=== PATIENT | male | born 1970 | race Caucasian/White ===

== ENCOUNTER 2020-10-03 19:35 | Emergency (ER) | payer OTHER, SELFPAY ==
[2020-10-03] MEDS ORDERED: VANCOMYCIN 1 GM/VIAL ONE (21:33)
[2020-10-03] MEDS ORDERED: NA CHLORIDE 0.9% 500 ML ONE (21:33)
[2020-10-03 21:43] LABS: Absolute Lymphocytes (CBC) 1.3 K/uL (0.7-4.9); Basophils % 0.9 % (0-1.3); Hematocrit 39.8 % (39.6-49.0); Lymphocytes % 17.9 % (15.3-44.8); MPV 8.4 fL (7.6-11.3); RBC Red Blood Cell Count 4.73 M/uL (4.33-5.43)
[2020-10-03 21:59] LABS: C-Reactive Protein 11.5 mg/L (<3.00); Potassium 3.6 mmol/L (3.5-5.1)
--- NOTE | 2020-10-03 22:32 | ER ---
Nurse's Notes [facility] Name: Norberto Beyer Jr Age: 50 yrs Sex: Male : 1970 Arrival Date: 10/03/2020 Time: 19:38 Bed 13 Private MD: Diego Francisco H Diagnosis: Cellulitis left leg. Multiple woumds left leg Presentation: 10/03 20:22 Chief complaint: Patient states: left foot wounds that have been there for almost 3 em months, denies fever, is concerned he may be diabetic, rates pain 7/10. Coronavirus screen: Client denies travel out of the [place] in the last 14 days. Ebola Screen: Patient negative for fever greater than or equal to 101.5 degrees Fahrenheit, and additional compatible Ebola Virus Disease symptoms Patient denies exposure to infectious person. Patient denies travel to an Ebola-affected area in the 21 days before illness onset. No symptoms or risks identified at this time. Initial Sepsis Screen: Does the patient meet any 2 criteria? HR > 90 bpm. No. Patient's initial sepsis screen is negative. Does the patient have a suspected source of infection? Yes: Skin breakdown/wound. Risk Assessment: Do you want to hurt yourself or someone else? Patient reports no desire to harm self or others. Onset of symptoms was October 03, 2020. 20:22 Method Of Arrival: Ambulatory em 20:22 Acuity: MAGO 3 em Historical: - Allergies: 20:23 No Known Allergies; em - PMHx: 20:23 None; em - PSHx: 20:23 None; em - Immunization history:: Adult Immunizations up to date. - Social history:: Smoking status: Patient denies any tobacco usage or history of. Screenin:30 Abuse screen: Denies threats or abuse. Nutritional screening: No deficits noted. jb4 Tuberculosis screening: No symptoms or risk factors identified. Fall Risk None identified. Assessment: 20:30 General: Appears in no apparent distress. comfortable, Behavior is calm, cooperative, jb4 appropriate for age. Pain: Complains of pain in left leg Pain does not radiate. Neuro: Level of Consciousness is awake, alert, obeys commands, Oriented to person, place, time, situation. Cardiovascular: Patient's skin is warm and dry. Respiratory: Airway is patent Respiratory effort is even, unlabored, Respiratory pattern is regular, symmetrical. GI: No signs and/or symptoms were reported involving the gastrointestinal system. : No signs and/or symptoms were reported regarding the genitourinary system. EENT: No signs and/or symptoms were reported regarding the EENT system. Derm: Skin is pink, warm \T\ dry. Wound noted left calf, medial aspect of left calf and left reynoso. Musculoskeletal: Circulation, motion, and sensation intact. Range of motion: intact in all extremities. 21:30 Reassessment: Patient appears in no apparent distress at this time. Patient and/or jb4 family updated on plan of care and expected duration. Pain level reassessed. Patient is alert, oriented x 3, equal unlabored respirations, skin warm/dry/pink. 22:31 Reassessment: D/c pending completion of IV fluids. jb4 23:59 Reassessment: Patient appears in no apparent distress at this time. Patient and/or jb4 family updated on plan of care and expected duration. Pain level reassessed. Patient is alert, oriented x 3, equal unlabored respirations, skin warm/dry/pink. Vital Signs: 20:22 BP 108 / 96; Pulse 96; Resp 16; Temp 97.8; Pulse Ox 99% on R/A; Weight 115.67 kg; em Height 6 ft. 0 in. (182.88 cm); Pain 7/10; 21:45 BP 123 / 85; Pulse 86; Resp 16; Pulse Ox 98% on R/A; jb4 23:15 BP 128 / 88; Pulse 77; Resp 16; Pulse Ox 100% on R/A; jb4 20:22 Body Mass Index 34.58 (115.67 kg, 182.88 cm) em ED Course: 19:38 Patient arrived in ED. ds1 19:38 Diego Francisco DO is Private Physician. ds1 20:23 Triage completed. em 20:23 Arm band placed on. em 20:30 Patient has correct armband on for positive identification. Bed in low position. Call jb4 light in reach. Side rails up X 1. Pulse ox on. NIBP on. 20:40 Sid Posey RN is Primary Nurse. jb4 20:51 Chan Davalos MD is Attending Physician. pkl 21:29 Inserted saline lock: 20 gauge in right antecubital area, using aseptic technique. dh4 Blood collected. 22:30 Diego Francisco DO is Referral Physician. pkl 10/04 00:02 No provider procedures requiring assistance completed. IV discontinued, intact, jb4 bleeding controlled, No redness/swelling at site. Pressure dressing applied. Administered Medications: 10/03 21:53 Drug: vancoMYCIN 1.5 grams Route: IVPB; Rate: calculated rate; Site: right antecubital; jb4 10/04 00:02 Follow up: Response: No adverse reaction; IV Status: Completed infusion; IV Intake: jb4 500ml Intake: 00:02 IV: 500ml; Total: 500ml. jb4 Outcome: 10/03 22:31 Discharge ordered by . pkl 10/04 00:02 Discharged to home ambulatory. jb4 Condition: stable Discharge instructions given to patient, Instructed on discharge instructions, follow up and referral plans. medication usage, Demonstrated understanding of instructions, follow-up care, medications, Prescriptions given X 1. 00:03 Patient left the ED. jb4 Signatures: Chan Davalos MD MD pkl Pilo Ortiz, RN RN Maine Phelan ds1 Sid Posey RN RN jb4 Eric Ricketts [facility]
--- NOTE | 2020-10-03 22:32 | EDPHYS ---
Physician Documentation [facility] Name: Norberto Beyer Jr Age: 50 yrs Sex: Male : 1970 Arrival Date: 10/03/2020 Time: 19:38 Bed 13 Private MD: Diego Francisco H ED Physician Chan Davalos HPI: 10/03 21:02 This 50 yrs old Male presents to ER via Ambulatory with complaints of Leg pkl Pain. 21:02 The patient presents with pain, that is acute, swelling, multiple wounds. The pkl complaints affect the left leg. Onset: The symptoms/episode began/occurred 3 month(s) ago. Saw Dr. Francisco and given Amoxicillin without improvement. Now taking Levaquin. Historical: - Allergies: 20:23 No Known Allergies; em - PMHx: 20:23 None; em - PSHx: 20:23 None; em - Immunization history:: Adult Immunizations up to date. - Social history:: Smoking status: Patient denies any tobacco usage or history of. ROS: 21:02 Eyes: Negative for injury, pain, redness, and discharge, ENT: Negative for injury, pkl pain, and discharge, Neck: Negative for injury, pain, and swelling, Cardiovascular: Negative for chest pain, palpitations, and edema, Respiratory: Negative for shortness of breath, cough, wheezing, and pleuritic chest pain, Abdomen/GI: Negative for abdominal pain, nausea, vomiting, diarrhea, and constipation, Back: Negative for injury and pain, : Negative for injury, bleeding, discharge, and swelling. 21:02 MS/extremity: Positive for erythema, pain, swelling, of the left leg, multiple wounds. 21:02 Neuro: Negative for altered mental status, loss of consciousness. Exam: 21:02 Head/Face: Normocephalic, atraumatic. Eyes: Pupils equal round and reactive to light, pkl extra-ocular motions intact. Lids and lashes normal. Conjunctiva and sclera are non-icteric and not injected. Cornea within normal limits. Periorbital areas with no swelling, redness, or edema. ENT: Nares patent. No nasal discharge, no septal abnormalities noted. Tympanic membranes are normal and external auditory canals are clear. Oropharynx with no redness, swelling, or masses, exudates, or evidence of obstruction, uvula midline. Mucous membranes moist. Neck: Trachea midline, no thyromegaly or masses palpated, and no cervical lymphadenopathy. Supple, full range of motion without nuchal rigidity, or vertebral point tenderness. No Meningismus. Chest/axilla: Normal chest wall appearance and motion. Nontender with no deformity. No lesions are appreciated. Cardiovascular: Regular rate and rhythm with a normal S1 and S2. No gallops, murmurs, or rubs. Normal PMI, no JVD. No pulse deficits. Respiratory: Lungs have equal breath sounds bilaterally, clear to auscultation and percussion. No rales, rhonchi or wheezes noted. No increased work of breathing, no retractions or nasal flaring. Abdomen/GI: Soft, non-tender, with normal bowel sounds. No distension or tympany. No guarding or rebound. No evidence of tenderness throughout. Back: No spinal tenderness. No costovertebral tenderness. Full range of motion. Neuro: Awake and alert, GCS 15, oriented to person, place, time, and situation. Cranial nerves II-XII grossly intact. Motor strength 5/5 in all extremities. Sensory grossly intact. Cerebellar exam normal. Normal gait. 21:02 Musculoskeletal/extremity: Extremities: grossly normal except: noted in the left leg: erythema, pain, swelling, multiple wounds. Vital Signs: 20:22 BP 108 / 96; Pulse 96; Resp 16; Temp 97.8; Pulse Ox 99% on R/A; Weight 115.67 kg; em Height 6 ft. 0 in. (182.88 cm); Pain 7/10; 21:45 BP 123 / 85; Pulse 86; Resp 16; Pulse Ox 98% on R/A; jb4 23:15 BP 128 / 88; Pulse 77; Resp 16; Pulse Ox 100% on R/A; jb4 20:22 Body Mass Index 34.58 (115.67 kg, 182.88 cm) em MDM: 20:52 Patient medically screened. pkl 22:27 Data reviewed: vital signs, nurses notes, lab test result(s). ED course: Discussed lab pkl results with patient. Patient does not want to be admitted at this time. Would like to try outpatient treatment at this time. Advised to return if not better. Patient understood instructions. 10/03 21:02 Order name: CBC with Diff pkl 10/03 21:02 Order name: Chem 7 pkl 10/03 21:02 Order name: D-Dimer pkl 10/03 21:02 Order name: CRP pkl 10/03 21:02 Order name: Sed Rate pkl 10/03 21:02 Order name: Blood Culture Adult (2) pkl 10/03 21:02 Order name: Lactate; Complete Time: 22:13 pkl 10/03 21:02 Order name: CBC with Automated Diff; Complete Time: 22:17 EDMS 10/03 21:02 Order name: Basic Metabolic Panel; Complete Time: 22:13 EDMS 10/03 21:02 Order name: D-Dimer; Complete Time: 21:51 EDMS 10/03 21:02 Order name: C-Reactive Protein; Complete Time: 22:13 EDMS 10/03 21:02 Order name: Saline Lock; Complete Time: 21:30 pkl 10/03 21:02 Order name: Sedimentation Rate, Westergren; Complete Time: 22:17 EDMS Administered Medications: 21:53 Drug: vancoMYCIN 1.5 grams Route: IVPB; Rate: calculated rate; Site: right antecubital; jb4 10/04 00:02 Follow up: Response: No adverse reaction; IV Status: Completed infusion; IV Intake: jb4 500ml Disposition Summary: 10/03/20 22:31 Discharge Ordered Location: Home pkl Problem: new pkl Symptoms: are unchanged pkl Condition: Stable pkl Diagnosis - Cellulitis left leg. Multiple woumds left leg pkl Followup: pkl - With: Diego Francisco DO - When: 2 - 3 days - Reason: Re-evaluation by your physician Discharge Instructions: - Discharge Summary Sheet pkl Forms: - Medication Reconciliation Form pkl - Thank You Letter pkl - Antibiotic Education pkl - Prescription Opioid Use pkl Prescriptions: - Clindamycin HCl 300 mg Oral Capsule - take 1 capsule by ORAL route every 6 hours for 7 days; 28 capsule; Refills: 0, pkl Product Selection Permitted Signatures: Dispatcher [employer] Chan Haji MD MD pkl Pilo Ortiz RN RN em Bryson, James, RN RN jb4 Corrections: (The following items were deleted from the chart) 10/03 21:03 21:02 HEMOGLOBIN A1C+CHEM A1C.LAB.BRZ ordered. EDMS EDMS 22:25 22:25 HEMOGLOBIN A1C+CHEM A1C.LAB.BRZ ordered. EDMS EDMS
[2020-10-04 01:02] VITALS: TEMP 97.8
[2020-10-04 01:07] VITALS: BP 128/88; O2SAT 100
== END 2020-10-04 00:03 | disposition home or self-care (01) ==
LOC: ER 19:35
DX: L03.116 Cellulitis of left lower limb (principal)
CPT/HCPCS: 36415; 80048; 83605; 85025; 85379; 85652; 86140; 87040; 87070; 87205; 96365; 96366; 99284; J3370; J7040

== ENCOUNTER 2022-10-25 22:18 | Emergency (ER) | payer SELFPAY ==
[2022-10-26 01:42] LABS: Absolute Lymphocytes (CBC) 1.3 K/uL (0.7-4.9); Hematocrit 39.8 % (39.6-49.0); Lymphocytes % 18.1 % (15.3-44.8); MCV 83.7 fL (80-100); MPV 7.6 fL (7.6-11.3); Platelets 326 thou/uL (152-406); RBC Red Blood Cell Count 4.75 M/uL (4.33-5.43)
[2022-10-26 01:55] LABS: Potassium 3.6 mEq/L (3.5-5.1); Troponin High Sensitivity 4.9 pg/mL (<58.9)
--- NOTE | 2022-10-26 02:32 | ER ---
Nurse's Notes [facility] Name: Norberto Beyer Jr Age: 52 yrs Sex: Male : 1970 Arrival Date: 10/25/2022 Time: 22:18 Bed 6 Private MD: Diagnosis: Unspecified open wound, left lower leg;Cellulitis and acute lymphangitis of other parts of limb Presentation: 10/25 23:09 Chief complaint: Patient states: lesion to left leg X2 months. pt states that it cm10 started off of poison carlos and then his leg turned red and started to swell. Coronavirus screen: Vaccine status: Patient reports being unvaccinated. Client denies travel out of the [place] in the last 14 days. Ebola Screen: Patient denies travel to an Ebola-affected area in the 21 days before illness onset. No symptoms or risks identified at this time. Initial Sepsis Screen: Does the patient meet any 2 criteria? No. Patient's initial sepsis screen is negative. Does the patient have a suspected source of infection? No. Patient's initial sepsis screen is negative. Risk Assessment: Do you want to hurt yourself or someone else? Patient reports no desire to harm self or others. Onset of symptoms was October 25, 2022. 23:09 Method Of Arrival: Ambulatory cm10 23:09 Acuity: MAGO 3 cm10 Historical: - Allergies: 23:10 No Known Allergies; cm10 - PMHx: 23:10 None; cm10 - Immunization history:: Adult Immunizations not immunized. - Social history:: Smoking status: Patient denies any tobacco usage or history of. Screenin/10 01:[address] [facility] ED Fall Risk Assessment (Adult) History of falling in the last 3 months, kd3 including since admission No falls in past 3 months (0 pts) Confusion or Disorientation No (0 pts) Intoxicated or Sedated No (0 pts) Impaired Gait No (0 pts) Mobility Assist Device Used No (0 pt) Altered Elimination No (0 pt) Score/Fall Risk Level 0 - 2 = Low Risk Maintained a safe environment. Abuse screen: Denies threats or abuse. Denies injuries from another. Nutritional screening: No deficits noted. Tuberculosis screening: No symptoms or risk factors identified. Assessment: 00:55 General: Pt states "they did a chest X-ray on me but I am here for and infection in my kd3 leg. I do not need my heart checked out". provider asked to speak with patient. Provider at bedside now. . 01:22 General: Appears uncomfortable, Behavior is anxious. Pain: Complains of pain in left kd3 leg. Vital Signs: 10/25 23:09 BP 119 / 95; Pulse 85; Resp 18; Temp 98.6; Pulse Ox 99% on R/A; Weight 113.4 kg; Height cm10 6 ft. 0 in. ; Pain 05/26; 08 01:22 BP 118 / 77; Pulse 82; Resp 19; Pulse Ox 99% on R/A; kd3 03:03 BP 125 / 88; Pulse 72; Resp 19; Pulse Ox 100% on R/A; kd3 10/25 23:09 Body Mass Index 33.91 (113.40 kg, 182.88 cm) cm10 10/25 23:09 Pain Scale: Adult cm10 ED Course: 10/25 22:19 Patient arrived in ED. ag3 22:51 Jules Weiss PA is PHCP. cp 22:54 Jules Quinonez MD is Attending Physician. cp 23:10 Triage completed. cm10 23:11 Arm band placed on Patient placed in waiting room. cm10 23:30 US Extremity Venous Unilateral Ltd In Process Unspecified. EDMS 23:47 XRAY Chest (1 view) In Process Unspecified. EDMS 10/26 00:54 Anay David, RN is Primary Nurse. kd3 01:08 No provider procedures requiring assistance completed. Inserted saline lock: 20 gauge kd3 in right antecubital area, using aseptic technique. Blood collected. 01:22 Basic Metabolic Panel Sent. kd3 01:22 CBC with Diff Sent. kd3 01:22 NT PRO-BNP Sent. kd3 01:22 Troponin HS Sent. kd3 03:04 Provided Education on: . kd3 03:04 Patient has correct armband on for positive identification. kd3 03:04 IV discontinued, intact, bleeding controlled, No redness/swelling at site. Pressure kd3 dressing applied. Administered Medications: 03:03 Drug: Doxycycline PO 200 mg Route: PO; kd3 03:04 Follow up: Response: No adverse reaction kd3 03:03 Drug: Rocephin IV 2 grams Route: IV; Rate: calculated rate; Site: right antecubital; kd3 03:03 Follow up: IV Status: Completed infusion; IV Intake: 100ml kd3 Medication: 03:04 VIS not applicable for this client. kd3 Intake: 03:03 IV: 100ml; Total: 100ml. kd3 Outcome: 02:32 Discharge ordered by . arcelia 03:04 Discharged to home ambulatory. kd3 03:04 Condition: stable 03:04 Discharge instructions given to patient, Instructed on discharge instructions, follow up and referral plans. medication usage, Demonstrated understanding of instructions, follow-up care, medications, Prescriptions given X 2. 03:05 Patient left the ED. kd3 Signatures: Dispatcher [employer] EDMS Jules Weiss PA PA cp Gomez, Alice ag3 Doucette, Kyli RN RN kd3 Suyapa Colon RN RN cm10
--- NOTE | 2022-10-26 02:32 | EDPHYS ---
Physician Documentation [facility] Name: Norberto Beyer Jr Age: 52 yrs Sex: Male : 1970 Arrival Date: 10/25/2022 Time: 22:18 Bed 6 Private MD: ED Physician Jules Quinonez HPI: 10/25 23:15 This 52 yrs old Male presents to ER via Ambulatory with complaints of Leg Swelling. cp 23:15 The patient presents with swelling, tenderness. The complaints affect the left calf. cp Patient is a 52-year-old male with no significant past medical history who presents to the emergency department with complaints of wound to left lower leg for the past 2 months. Patient reports he has a history of skin irritation from poison carlos to the left lower leg and so he was scratching the area and 2 months ago got a superficial wound to the area. Patient reports increasing swelling, discomfort and redness to the left lower leg. Reports recently noticing some mild drainage. Patient denies fever. Historical: - Allergies: 23:10 No Known Allergies; cm10 - PMHx: 23:10 None; cm10 - Immunization history:: Adult Immunizations not immunized. - Social history:: Smoking status: Patient denies any tobacco usage or history of. ROS: 23:20 Constitutional: Negative for body aches, chills, fever, poor PO intake. cp 23:20 Eyes: Negative for injury, pain, redness, and discharge. cp 23:20 ENT: Negative for drainage from ear(s), ear pain, sore throat, difficulty swallowing, difficulty handling secretions. 23:20 Cardiovascular: Positive for edema, Negative for chest pain, palpitations. 23:20 Respiratory: Negative for cough, shortness of breath, wheezing. 23:20 Abdomen/GI: Negative for abdominal pain, nausea, vomiting, and diarrhea. 23:20 Back: Negative for pain at rest, pain with movement. 23:20 Skin: Positive for cellulitis, erythema, swelling, of the left lower leg, open wound. 23:20 Neuro: Negative for altered mental status, dizziness, headache, weakness. 23:20 All other systems are negative. Exam: 23:27 Constitutional: The patient appears in no acute distress, alert, awake, cp non-diaphoretic, non-toxic, well developed, well nourished, uncomfortable, overweight 23:27 Head/Face: Normocephalic, atraumatic. cp 23:27 Eyes: Periorbital structures: appear normal, Conjunctiva: normal, no exudate, no injection, Sclera: no appreciated abnormality, Lids and lashes: appear normal, bilaterally. 23:27 ENT: External ear(s): are unremarkable, Nose: is normal, Mouth: Lips: moist, Oral mucosa: pink and intact, moist, Posterior pharynx: is normal, airway is patent, no erythema, no exudate. 23:27 Chest/axilla: Inspection: normal. 23:27 Cardiovascular: Rate: normal, Rhythm: regular, JVD: is not appreciated, bilateral lower leg and ankle and foot edema with left worse than right. 23:27 Respiratory: the patient does not display signs of respiratory distress, Respirations: normal, no use of accessory muscles, no retractions, labored breathing, is not present, Breath sounds: are clear throughout, no decreased breath sounds, no stridor, no wheezing. 23:27 Abdomen/GI: Exam negative for discomfort, distension, guarding, Inspection: abdomen appears normal. 23:27 Back: pain, is absent, ROM is normal. 23:27 Skin: superficial wound noted posterior aspect of left calf with mild, yellow colored drainage, circumferential erythema noted, general swelling noted. 23:27 Neuro: Orientation: to person, place \T\ time. Mentation: is normal, Motor: moves all fours, strength is normal, Sensation: no obvious gross deficits, Gait: is steady. 10/26 01:20 ECG was reviewed by the Attending Physician. cp Vital Signs: 10/25 23:09 BP 119 / 95; Pulse 85; Resp 18; Temp 98.6; Pulse Ox 99% on R/A; Weight 113.4 kg; Height cm10 6 ft. 0 in. ; Pain 05/26; 10/26 01:22 BP 118 / 77; Pulse 82; Resp 19; Pulse Ox 99% on R/A; kd3 03:03 BP 125 / 88; Pulse 72; Resp 19; Pulse Ox 100% on R/A; kd3 10/25 23:09 Body Mass Index 33.91 (113.40 kg, 182.88 cm) cm10 10/25 23:09 Pain Scale: Adult cm10 MDM: 10/25 23:12 Patient medically screened. cp 10/26 02:30 Data reviewed: vital signs, nurses notes, lab test result(s), EKG, radiologic studies, cp plain films, ultrasound. 02:30 Differential diagnosis: abscess, DVT, cellulitis, sepsis, CHF, renal disease, cp lymphedema. I considered the following discharge prescriptions or medication management in the emergency department Medications were administered in the Emergency Department. See MAR. Counseling: I had a detailed discussion with the patient and/or guardian regarding: the historical points, exam findings, and any diagnostic results supporting the discharge/admit diagnosis, lab results, radiology results, the need for outpatient follow up, a family practitioner, to return to the emergency department if symptoms worsen or persist or if there are any questions or concerns that arise at home. 10/25 23:10 Order name: Basic Metabolic Panel; Complete Time: :58 10/26 01:58 Interpretation: Normal except: GFR 67. 10/25 23:10 Order name: CBC with Diff; Complete Time: :58 10/26 01:58 Interpretation: Normal except: HGB 13.1. 10/25 23:10 Order name: NT PRO-BNP; Complete Time: :58 10/25 23:10 Order name: Troponin HS; Complete Time: :58 10/25 23:10 Order name: US Extremity Venous Unilateral Ltd 10/25 23:10 Order name: XRAY Chest (1 view) 10/25 23:10 Order name: EKG; Complete Time: 23:11 10/25 23:10 Order name: Cardiac monitoring; Complete Time: 01:22 10/25 23:10 Order name: EKG - Nurse/Tech; Complete Time: 01:22 cp 10/25 23:10 Order name: IV Saline Lock; Complete Time: 01:22 cp 10/25 23:10 Order name: Labs collected and sent; Complete Time: 01:22 cp 10/25 23:10 Order name: O2 Per Protocol; Complete Time: : cp 10/25 23:10 Order name: O2 Sat Monitoring; Complete Time: : 10/26 01:59 Order name: Wound Care: please clean and dress wound; Complete Time: 03:03 cp EC:20 Rate is 85 beats/min. Rhythm is regular. [place] interval is normal. QRS interval is normal. cp QT interval is normal. T waves are Inverted. Interpreted by me. Reviewed by me. Administered Medications: 03:03 Drug: Doxycycline PO 200 mg Route: PO; kd3 03:04 Follow up: Response: No adverse reaction kd3 03:03 Drug: Rocephin IV 2 grams Route: IV; Rate: calculated rate; Site: right antecubital; kd3 03:03 Follow up: IV Status: Completed infusion; IV Intake: 100ml kd3 Disposition Summary: 10/26/22 02:32 Discharge Ordered Location: Home cp Problem: new cp Symptoms: have improved cp Condition: Stable cp Diagnosis - Unspecified open wound, left lower leg cp - Cellulitis and acute lymphangitis of other parts of limb cp Followup: cp - With: Private Physician - When: 2 - 3 days - Reason: Wound Recheck Discharge Instructions: - Discharge Summary Sheet cp - Cellulitis, Adult cp - Lymphedema cp - Wound Care, Adult cp Forms: - Medication Reconciliation Form cp - Thank You Letter cp - Antibiotic Education cp - Prescription Opioid Use cp - Patient Portal Instructions cp Prescriptions: - Doxycycline Hyclate 100 mg Oral Tablet - take 1 tablet by ORAL route every 12 hours; 20 tablet; Refills: 0, Product cp Selection Permitted - Bactrim DS 800-160 mg Oral Tablet - take 1 tablet by ORAL route every 12 hours for 10 days; 20 tablet; Refills: 0, cp Product Selection Permitted Signatures: Dispatcher [employer] EDMS Jules Weiss PA PA cp Doucette, Kyli, RN RN kd3 Suyapa Colon RN RN cm10 Corrections: (The following items were deleted from the chart) 02:35 02:32 Cellulitis of left lower limb cp cp 10/27 02:32 08 23:15 Patient is a 52-year-old male with no significant past medical history who cp presents to the emergency department with complaints of wound to left lower leg for the past 2 months. Patient reports he has a history of skin irritation to the left lower leg and so he was scratching the area in 2 months ago got a superficial wound to the area.. cp
[2022-10-26] MEDS ORDERED: DOXYCYCLINE 100 MG CAP PO ONE (02:53)
[2022-10-26] MEDS ORDERED: CEFTRIAXONE 2000 MG/VIAL ONE (02:53)
[2022-10-26] MEDS ORDERED: NA CHLORIDE 0.9% 100 ML ONE (02:54)
[2022-10-26 03:09] VITALS: TEMP 98.6
[2022-10-26 03:13] VITALS: BP 125/88; O2SAT 100
--- NOTE | 2022-10-26 16:44 | RAD REPORT ---
EXAM DESCRIPTION: Extremity Venous Uni Ltd CLINICAL HISTORY: Pain;Swelling COMPARISON: None. TECHNIQUE: Grayscale, color Doppler, and spectral Doppler imaging of the left lower extremity venous system. FINDINGS: Normal compressibility, phasicity, and flow identified in the left common femoral, femoral , popliteal, and visualized calf veins. Normal flow in the visualized greater saphenous vein. No echo genic thrombus identified. IMPRESSION: No evidence of deep venous thrombosis in the left lower extremity. Electronically signed by: Mikaela Mcwilliams MD 10/25/2022 11:59 PM CDT Due to temporary technical issues with the PACS/Fluency reporting system, reports are being signed by the in house radiologists without review as a courtesy to insure prompt reporting. The interpreting radiologist is fully responsible for the content of the report.
--- NOTE | 2022-10-26 19:20 | RAD REPORT ---
EXAM DESCRIPTION: XR Chest, 1 View CLINICAL HISTORY: The patient is 52 years old and is Male; edema TECHNIQUE: Frontal view of the chest. COMPARISON: No relevant prior studies available. FINDINGS: Lungs: Unremarkable. No consolidation. Pleural space: Unremarkable. No pneumothorax. Heart: Unremarkable. Mediastinum: Unremarkable. Bones/joints: Unremarkable. IMPRESSION: No acute findings in the chest. Electronically signed by: Haresh Steele MD 10/26/2022 12:02 AM CDT Due to temporary technical issues with the PACS/Fluency reporting system, reports are being signed by the in house radiologists without review as a courtesy to insure prompt reporting. The interpreting radiologist is fully responsible for the content of the report.
--- NOTE | 2022-10-29 15:37 | EKG ---
Test Date: 2022-10-26 Test Time: 01:14:45 [employer] Crewmember: ABENA MEASUREMENT RESULTS: Intervals: Rate: 85 CT: 136 QRSD: 96 QT: 400 QTc: 476 [place]: P: 64 CT: 136 QRS: 43 T: 55 INTERPRETIVE STATEMENTS: Normal sinus rhythm Nonspecific T wave abnormality Prolonged QT Abnormal ECG No previous ECG available for comparison Electronically Signed On 10-29-22 15:33:02 CDT by Nithin Hall
== END 2022-10-26 03:05 | disposition home or self-care (01) ==
LOC: ER 22:18
DX: L03.116 Cellulitis of left lower limb (principal)
CPT/HCPCS: 36415; 71045; 80048; 83880; 84484; 85025; 93005; 93971; 96374; 99284; J0696